=== PATIENT | male | born 2000 | race Caucasian/White ===

== ENCOUNTER 2019-01-05 09:02 | Outpatient (CLI) | payer OTHER ==
--- NOTE | 2019-01-05 11:03 | MRI ---
MRI LUMBAR SPINE WITHOUT CONTRAST: Comparison: None. History: Low back pain since a lumbar puncture in August 2017. Technique: Multiplanar, multisequence MRI images were obtained of the lumbar spine without contrast. FINDINGS: The vertebral bodies and intervertebral discs demonstrate normal height and alignment without fractur e or subluxation. No degenerative changes are seen. The discs are well hydrated. The conus medullaris terminates normally at T12-L1. The prevertebral and paraspinal soft tissues are unremarkable. No flu id tract is seen extending from the central canal into the paraspinal soft tissues to suggest a CSF l eak. No significant bulge or protrusion is seen throughout the lumbar spine. No posterior facet arthrosis. No neural foraminal or central canal stenosis. IMPRESSION: Normal MRI of the lumbar spine. POS: [facility]
== END 2019-01-05 09:03 | disposition home or self-care (01) ==
LOC: SCSMRI 09:02
PROVIDERS: ATTEND Family Medicine
DX: M54.5 Low back pain (principal); G89.29 Other chronic pain
CPT/HCPCS: 72148

== ENCOUNTER 2019-01-19 08:42 | Outpatient (CLI) | payer OTHER ==
--- NOTE | 2019-01-19 09:51 | RAD ---
4 VIEWS LUMBAR SPINE: Date: 01/19/19 HISTORY: Low back pain. FINDINGS: Four views of the lumbar spine provided. Lumbar pedicles are intact on frontal imaging. Neutral, flex ion, and extension lateral imaging demonstrates no anterolisthesis or retrolisthesis. No acute osseou s abnormality. IMPRESSION: Unremarkable 4 view examination of the lumbar spine. POS: [facility]
== END 2019-01-19 08:43 | disposition home or self-care (01) ==
LOC: RAD 08:42
PROVIDERS: ATTEND Nurse Practitioner Family
DX: M54.5 Low back pain (principal)
CPT/HCPCS: 72110

== ENCOUNTER 2021-01-22 09:51 | Outpatient (CLI) | payer OTHER ==
--- NOTE | 2021-01-22 10:31 | RAD ---
LEFT WRIST 3 VIEWS: Date: 01/22/2021 HISTORY: Fell on ice, with persistent wrist pain. FINDINGS: There are no signs of fracture or dislocation. IMPRESSION: Negative left wrist. POS: [facility]
== END 2021-01-22 09:52 | disposition home or self-care (01) ==
LOC: SCSRAD 09:51
PROVIDERS: ATTEND Family Medicine
DX: M25.532 Pain in left wrist (principal)

== ENCOUNTER 2022-03-25 10:18 | Outpatient (CLI) | payer OTHER | END 2022-03-25 10:19 | disposition home or self-care (01) | LOC: SCSRAD 10:18 | PROVIDERS: ATTEND Family Medicine | DX: R22.41 Localized swelling, mass and lump, right lower limb (principal) ==